=== PATIENT | female | born 1985 | race African-American/Black ===

== ENCOUNTER → 2017-06-28 | Day surgery (SDC) | payer OTHER ==
[~2017-06-28] MED LIST: CALCIUM; FENTANYL CITRATE/PF 100MCG/2 ML INJ ONE; HYOSCYAMINE SULFATE 0.5 MG/ML AMP ONE; LIDOCAINE HCL 2% LOCAL INJ 5 ML SDV VIAL INJ ONE; MIDAZOLAM HCL 2 MG/2 ML VIAL ONE; MULTIVITAMIN; PROPOFOL IV EMULSION 10 MG/ML 50 ML VIAL ONE; VITAMIN B COMPLEX; VITAMIN C
--- NOTE | 2017-06-28 19:43 | Operative Report ---
DATE OF PROCEDURE: June 28, 2017 REFERRING PHYSICIAN: Dr. Christopher Antunez. PROCEDURE PERFORMED: EGD with biopsies and a colonoscopy with biopsies. INDICATIONS FOR EGD: Epigastric pain, nausea and bloating. INDICATIONS FOR COLONOSCOPY: History of bright red blood per rectum. MEDICATION: Patient was done under MAC. Please see anesthesiologist's note. PROCEDURE: With patient in the left lateral decubitus position, the flexible fiberoptic Olympus gastroscope was introduced into the esophagus under direct visualization without any difficulty. There was some patchy erythema noted in distal esophagus. The scope was then advanced with ease into the stomach traversing a small sliding hiatal hernia. The mucosa overlying the antrum and the body revealed some diffuse erythema and low-grade to moderate edema and biopsies were obtained and sent to stain for H. pylori. Pylorus appeared to be of normal contour and shape. Was intubated with ease and the scope was advanced all the way to the 2nd portion of the duodenum. The scope was then withdrawn slowly. Mucosa overlying the proximal 2nd portion appeared to be within normal limits. Two minute ulcers were noted in the duodenal bulb. The scope was then withdrawn back into the stomach and retroflexed. Mucosa overlying the fundus and the cardia appeared to be within normal limits. The scope was then straightened out. The stomach was decompressed. The scope was subsequently withdrawn. Patient tolerated procedure well. IMPRESSION: 1. Distal esophagitis, mild. 2. Small sliding hiatal hernia. 3. Gastritis biopsied. Biopsies sent to stain for H. pylori. 4. Duodenal ulcers, minute, bulb without active bleeding or stigmata of recent hemorrhage. PLAN: Follow up histology. Initiate Protonix 40 mg 1 p.o. q.a.m. a.c. PROCEDURE: Patient was then turned around and after adequate lubrication of the anal canal a flexible fiberoptic Olympus colonoscope was inserted into the rectum with ease advanced all the way to the cecum. It was then withdrawn slowly. Mucosa overlying the cecum, ascending colon, transverse colon and descending colon appeared to be within normal limits. The mucosa overlying the sigmoid and rectum revealed some patchy erythema and mild to moderate edema and biopsies were obtained. The scope was then retroflexed into the distal rectum and small internal hemorrhoids were noted, none of which was actively bleeding. The scope was then straightened out. The rectosigmoid area as well as the distal rectal area were decompressed. Scope was subsequently withdrawn. A small anal was noted at 6 o'clock with the patient in the supine position. Patient tolerated the procedure well. IMPRESSION 1. Proctosigmoiditis, mild. 2. Internal hemorrhoids, none actively bleeding. 3. Anal fissure at 6 o'clock with patient in the supine position. PLAN: Follow up histology. Initiate high-fiber, low-fat diet. Initiate high-fiber supplement. Start Anucort suppositories b.i.d. times 10 days and then p.r.n. Job#: [id number] cc:CHRISTOPHER ANTUNEZ DO
== END | disposition home or self-care (01) ==
LOC: OR 13:59
PROVIDERS: ATTEND Internal Medicine Gastroenterology
DX: K29.70 Gastritis, unspecified, without bleeding (principal); K26.9 Duodenal ulcer, unspecified as acute or chronic, without hemorrhage or perforation; K63.89 Other specified diseases of intestine; K20.9 Esophagitis, unspecified; K60.2 Anal fissure, unspecified; K44.9 Diaphragmatic hernia without obstruction or gangrene; K59.00 Constipation, unspecified; K64.8 Other hemorrhoids; F17.210 Nicotine dependence, cigarettes, uncomplicated; Z68.25 Body mass index [BMI] 25.0-25.9, adult
CPT/HCPCS: 43239; 45380; 81025; J1980; J2001; J2250

== ENCOUNTER → 2019-09-19 | Day surgery (SDC) | payer OTHER ==
[~2019-09-19] MED LIST changes: +ADDERALL 20 MG20 MG PO; +HYOSCYAMINE 0.125 MG TAB ONE; -HYOSCYAMINE SULFATE 0.5 MG/ML AMP ONE; -LIDOCAINE HCL 2% LOCAL INJ 5 ML SDV VIAL INJ ONE; +PROBIOTIC & AC1 EACH PO
[2019-09-19 11:20] VITALS: BP 132/84
--- NOTE | 2019-09-19 12:16 | Operative Report ---
DATE OF PROCEDURE: 09/19/2019 SURGEON: Keven Ray MD PROCEDURE: Colonoscopy with polypectomy and biopsies. INDICATIONS FOR EGD: Anorectal pain, constipation, intermittent diarrhea, history of bright red blood per rectum. MEDICATIONS: The patient was done under MAC, please see anesthesiologist's note. PROCEDURE IN DETAIL: With the patient in left lateral decubitus position, a flexible fiberoptic Olympus colonoscope was inserted into the rectum with ease and advanced all the way to the cecum. Mucosa overlying the cecum appeared to be within normal limits. The ileocecal valve was intubated and the scope was advanced into the terminal ileum. A minute ulcer was noted in the terminal ileum that was biopsied. The scope was then withdrawn back into the colon and it was then withdrawn slowly. Mucosa overlying the ascending and the transverse appeared to be within normal limits. Mild patchy inflammatory changes were noted in the left colon and the rectum. Random biopsies were obtained. One polyp was removed per cold biopsy forceps from the sigmoid colon. The scope was then retroflexed into the distal rectum. Small internal hemorrhoids were noted, none of which was actively bleeding. The scope was then straightened out, it was subsequently withdrawn after securing an adequate stool specimen that was sent for the appropriate stool studies. An anal fissure was noted on the way out. The patient tolerated the procedure well. IMPRESSION: 1. Minute ulcer, terminal ileum, biopsied. 2. Mild patchy left-sided colitis. 3. Sigmoid colon polyp, minute, removed per cold biopsy forceps. 4. Proctitis, mild. 5. ? rectocele. 6. Internal hemorrhoids, none actively bleeding. PLAN: Follow up histology. Follow up stool studies. Check IBD panel, CRP, and sed rate. Solution Professional evaluation. Might benefit from anorectal manometry. Keven Ray MD [facility] [place] /[id number] cc: Navi Augustin DO
[2019-09-19 12:21] LABS: WBC,FECAL (FECAL LACTOFERRIN) NEGATIVE (NEGATIVE)
[2019-09-19 13:41] LABS: C DIFFICILE TOXIN A&B AMP PROB NEGATIVE (NEGATIVE)
== END | disposition home or self-care (01) ==
LOC: OR 07:44
PROVIDERS: ATTEND Internal Medicine Gastroenterology
DX: K60.2 Anal fissure, unspecified (principal); K63.5 Polyp of colon; K51.50 Left sided colitis without complications; K64.8 Other hemorrhoids; R53.1 Weakness; R03.0 Elevated blood-pressure reading, without diagnosis of hypertension; F17.210 Nicotine dependence, cigarettes, uncomplicated; Z88.8 Allergy status to other drugs, medicaments and biological substances
CPT/HCPCS: 36415; 45380; 81025; 83630; 83993; 85651; 86140; 86256; 86671; 87045; 87177; 87328; 87493; J2250; J2704; J3010; 45384

== ENCOUNTER → 2019-11-15 | Day surgery (SDC) | payer OTHER ==
[2019-11-11 12:25] LABS: BASOPHILS % 0.5 % (0.0-1.0); EOSINOPHILS # (AUTO) 0.1 (0.0-0.4); EOSINOPHILS % 1.4 % (0.0-6.0); HEMOGLOBIN 13.5 g/dL (12.0-16.0); LYMPHOCYTES # (AUTO) 2.1 (1.0-3.2); LYMPHOCYTES % 24.7 % (18.0-39.1); MEAN CORPUSCULAR HEMOGLOBIN 31.1 pg (28-32); MEAN CORPUSCULAR HGB CONC 33.8 g/dL (31-35); MEAN CORPUSCULAR VOLUME 92.2 fL (81-99); MONOCYTES # (AUTO) 0.5 (0.2-0.8); MONOCYTES % 5.5 % (4.4-11.3); NEUTROPHILS # (AUTO) 5.6 (2.1-6.9); NEUTROPHILS % 67.7 % (38.7-80.0); PLATELET COUNT 291 x10e3/uL (140-360); RED BLOOD COUNT 4.34 x10e6/uL (3.6-5.1); RED CELL DISTRIBUTION WIDTH 12.3 % (11.7-14.4)
[2019-11-11 12:44] LABS: ANION GAP 13.7 mmol/L (8-16); BLOOD UREA NITROGEN 10 mg/dL (7-26); BUN/CREATININE RATIO 12 (6-25); CALCIUM 9.5 mg/dL (8.4-10.2); CARBON DIOXIDE 22 mmol/L (22-29); CHLORIDE 108 mmol/L (98-107); CREATININE, SERUM 0.82 mg/dL (0.57-1.11); EST GLOMERULAR FILTRATION RATE > 60 ML/MIN (60-); GLUCOSE 106 mg/dL (74-118); POTASSIUM 3.7 mmol/L (3.5-5.1); SODIUM 140 mmol/L (136-145)
[~2019-11-15] MED LIST changes: +BUPIVACAINE 0.25%/EPI 30ML SDV INJ ONE; +DEXAMETHASONE SOD PHOS INJ 4 MG/ML VIAL ONE; -HYOSCYAMINE 0.125 MG TAB ONE; +KETOROLAC TROMETHAMINE 30 MG/ML VIAL ONE; +LIDOCAINE HCL 1% LOCAL INJ 20 ML VIAL ONE; +LIDOCAINE HCL 2% 30 ML TUBE ONE; +LIDOCAINE HCL 2% LOCAL INJ 5 ML SDV VIAL INJ ONE; +LINZESS72 MCG PO; +MEPERIDINE HCL INJ 25 MG/ML VIAL ONE; +OMEGA-31000 MG PO; +ONDANSETRON HCL INJ 2MG/ML 2ML 2 MG/ML VIAL ONE; +PROPOFOL IV EMULSION 10 MG/ML 20 ML VIAL ONE; -PROPOFOL IV EMULSION 10 MG/ML 50 ML VIAL ONE; +SEVOFLURANE INHAL SOLN 250 ML PEN BTL ONE
[2019-11-15 11:30] VITALS: BP 115/81
--- NOTE | 2019-11-15 14:10 | Operative Report ---
DATE OF PROCEDURE: 11/15/2019 SURGEON: Wilfredo Narvaez MD PREOPERATIVE DIAGNOSIS: Severe rectal pain, probable rectal fissure. POSTOPERATIVE DIAGNOSIS: Severe rectal pain secondary to posterior anorectal fissure. OPERATIONS PERFORMED: Rectal exam under anesthesia and left partial superficial internal sphincterotomy and fissurectomy. ANESTHESIA: General. COMPLICATIONS: None. ESTIMATED BLOOD LOSS: Minimal. DESCRIPTION OF PROCEDURE: With the patient lying in bed in the lithotomy position under good general anesthesia, the perineum was prepped with Betadine solution and draped in the usual manner. A complete anorectal block was then performed with 0.25% Marcaine and 1% lidocaine with epinephrine. Examination at this point revealed suspected the patient had a posterior anorectal fissure. She also had some mild external hemorrhoids, which did not appear to have any acute thrombosis. We decided to go ahead and perform a sphincterotomy. An incision was then made at the 3 o'clock position and the superficial fibers of the internal sphincter were identified and a partial sphincterotomy was then performed with the cautery and nice release was achieved. Hemostasis was ascertained and the incision was then closed with interrupted sutures of 3-0 chromic. After this was done, the sentinel tag of the fissure was then resected and the fissure itself was debrided back to good normal tissue. Hemostasis was ascertained. A Gelfoam pack impregnated with Xylocaine was placed. A dressing was applied. The sponge, lap, and needle count was correct. The patient tolerated the procedure well and returned to the recovery room in stable condition. MD ELO Alvarez/MODL /[id number]
== END | disposition home or self-care (01) ==
LOC: OR 06:38
PROVIDERS: ATTEND Surgery
DX: K62.89 Other specified diseases of anus and rectum (principal); Z01.812 Encounter for preprocedural laboratory examination; K60.2 Anal fissure, unspecified; Z11.59 Encounter for screening for other viral diseases
CPT/HCPCS: 36415; 46200; 80048; 81025; 85025; 87635; J1100; J1885; J2001 ×2; J2175; J2405; J2704; J2250; J3010

== ENCOUNTER → 2024-03-15 | Day surgery (SDC) | payer OTHER ==
[2024-03-14 11:38] LABS: BASOPHILS % 0.4 % (0.0-1.0); EOSINOPHILS # (AUTO) 0.5 (0.0-0.4); EOSINOPHILS % 5.9 % (0.0-6.0); HEMATOCRIT 42.6 % (34.2-44.1); HEMOGLOBIN 13.7 g/dL (12.0-16.0); LYMPHOCYTES # (AUTO) 2.6 (1.0-3.2); LYMPHOCYTES % 30.3 % (18.0-39.1); MEAN CORPUSCULAR HEMOGLOBIN 32.2 pg (28-32); MEAN CORPUSCULAR HGB CONC 32.2 g/dL (31-35); MONOCYTES # (AUTO) 0.4 (0.2-0.8); NEUTROPHILS # (AUTO) 4.9 (2.1-6.9); NEUTROPHILS % 58.2 % (38.7-80.0); PLATELET COUNT 296 x10e3/uL (140-360); RED BLOOD COUNT 4.26 x10e6/uL (3.6-5.1); RED CELL DISTRIBUTION WIDTH 12.4 % (11.7-14.4); WHITE BLOOD COUNT 8.46 x10e3/uL (4.8-10.8)
[2024-03-14 12:01] LABS: ALBUMIN 4.2 g/dL (3.5-5.0); ANION GAP 38.3 mmol/L (8-16); BILIRUBIN,TOTAL 0.4 mg/dL (0.2-1.2); CALCIUM 9.8 mg/dL (8.4-10.2); CREATININE, SERUM 0.89 mg/dL (0.57-1.11); POTASSIUM 3.3 mmol/L (3.5-5.1); TOTAL PROTEIN 8.4 g/dL (6.5-8.1)
[~2024-03-15] MED LIST changes: +ACETAMINOPHEN 1000 MG/100 ML 100 ML IV ONE; +ACETAMINOPHEN 1000 MG/100 ML IV ONE; +BUPIVACAINE 0.25% 30ML SDV ONE; -BUPIVACAINE 0.25%/EPI 30ML SDV INJ ONE; +DEXAMETHASONE SOD PHOS INJ 4 MG/ML SDV ONE; -DEXAMETHASONE SOD PHOS INJ 4 MG/ML VIAL ONE; +FAMOTIDINE 20 MG/2 ML VIAL IV ONE; +FERROUS SULFAT325 MG PO; +LIDOCAINE 2%/ EPINEPHRINE 20ML MDV ONE; -LIDOCAINE HCL 1% LOCAL INJ 20 ML VIAL ONE; -LIDOCAINE HCL 2% 30 ML TUBE ONE; +LIDOCAINE JELLY 2% 10ML URO-JET ONE; -MEPERIDINE HCL INJ 25 MG/ML VIAL ONE; -MIDAZOLAM HCL 2 MG/2 ML VIAL ONE
[2024-03-15] MEDS: LACTATED RINGER'S 1,000 ML ONE (06:50)
[2024-03-15 09:51] VITALS: TEMP 99
[2024-03-15 11:15] VITALS: BP 120/80; PULSE 88; RESP 16; O2SAT 100
== END | disposition home or self-care (01) ==
LOC: OR 06:38
PROVIDERS: ATTEND Surgery
DX: K60.50 Anorectal fistula, unspecified (principal); K58.9 Irritable bowel syndrome, unspecified; K28.9 Gastrojejunal ulcer, unspecified as acute or chronic, without hemorrhage or perforation; F90.9 Attention-deficit hyperactivity disorder, unspecified type; F17.290 Nicotine dependence, other tobacco product, uncomplicated; Z01.810 Encounter for preprocedural cardiovascular examination; Z01.812 Encounter for preprocedural laboratory examination; Z79.899 Other long term (current) drug therapy
CPT/HCPCS: 36415; 46270; 80053; 81025; 85025; 93005; J0131; J0694; J1100; J1885; J2003; J2004; J2405; J2704; J3010; J7121